=== PATIENT | male | born 1945 | race Caucasian/White ===

== ENCOUNTER → 2025-01-07 09:13 | Outpatient (REF) | payer OTHER, SELFPAY ==
--- NOTE | 2025-01-07 10:28 | CARDSERVDEF ---
Echocardiogram with Definity completed after protocol screening completed. Allergies verified.
Patent IV site: __Right forearm 22 G PC___
IV site flushed with 0.9% NaCl pre and post administration.
Diluted bolus method utilized to enhance visualization of ventricular you.
Total volume given: __3__ mL
Patient tolerated all procedures well without complications.
Heplock D/c ed at 1027, site clear. No redness, no edema, pressure held, no bleeding . 2x2 applied and taped. Pt offers no complaints.
== END ==
LOC: RCS 09:13
PROVIDERS: ATTENDING PHYSICIAN Internal Medicine Interventional Cardiology; FAMILY PHYSICIAN Family Medicine
DX: I25.5 Ischemic cardiomyopathy (principal); I21.09 ST elevation (STEMI) myocardial infarction involving other coronary artery of anterior wall; I48.0 Paroxysmal atrial fibrillation
CPT/HCPCS: 93306; Q9957